=== PATIENT | female | born 2005 | race Caucasian/White ===

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

== ENCOUNTER 2025-01-11 16:58 | Outpatient (REF) | payer MEDICAID, SELFPAY | END 2025-01-11 16:59 | disposition home or self-care (01) | LOC: HO.LNP 16:58 | PROVIDERS: Visit Provider Family Medicine | DX: S31.145A Puncture wound of abdominal wall with foreign body, periumbilic region without penetration into peritoneal cavity, initial encounter (principal); W26.8XXA Contact with other sharp object(s), not elsewhere classified, initial encounter; Y93.89 Activity, other specified; Y92.9 Unspecified place or not applicable; Y99.9 Unspecified external cause status; L08.9 Local infection of the skin and subcutaneous tissue, unspecified | CPT/HCPCS: 87070; 87077; 87186; 87205 ==